=== PATIENT | male | born 1985 | race Caucasian/White ===

== ENCOUNTER 2020-07-09 01:02 | Outpatient (CLI) | payer OTHER, SELFPAY ==
[2020-07-09 16:32] LABS: SARS-CoV-2 RNA PCR Negative
== END 2020-07-09 01:03 | disposition home or self-care (01) ==
LOC: ANHCOVIDDT 01:02
PROVIDERS: PCP Family Medicine; Visit Provider Internal Medicine Gastroenterology
DX: Z01.812 Encounter for preprocedural laboratory examination (principal); Z20.828 Contact with and (suspected) exposure to other viral communicable diseases
CPT/HCPCS: 87635; C9803; U0003

== ENCOUNTER 2020-07-11 00:27 | Day surgery (SDC) | payer OTHER, MEDICAID, SELFPAY ==
[2020-06-27 13:41] VITALS: BMI 40.8
[2020-07-11 10:46] VITALS: BP 124/83; PULSE 105; RESP 16; TEMP 36.5; O2SAT 96; BMI 40.4
--- NOTE | 2020-07-11 10:56 | WPDANESEPPF ---
Anes - Initial Pre Proc Eval Procedure: Operation Date: 07/11/20 11:30 Proposed Procedures p Esophagogastroduodenoscopy & Colonoscopy - Reyes Stearns MD Date/Time: 07/11/20 10:56 Surgeon: Reyes Stearns MD Pre Op Diagnosis: Abdominal Pain/ Diarrhea Patient Data Age: 35 Gender: M Height: 5 ft 8 in Weight: 120.8 kg Last Vital Signs Temp 36.5 C 07/11/20 10:46 Pulse 105 H 07/11/20 10:46 Resp 16 07/11/20 10:46 BP 124/83 07/11/20 10:46 Pulse Ox 96 07/11/20 10:46 Allergies Allergy/AdvReac Type Severity Reaction Status Date / Time No Known Allergies Allergy Verified 07/11/20 10:43 Home Medications Medication Instructions Recorded Confirmed Type famotidine 40 mg tablet 40 mg PO DAILY #90 tablet 05/25/20 07/06/20 Rx eluxadoline 75 mg tablet 75 mg PO BID #60 tablet 06/11/20 07/06/20 Rx sertraline 25 mg tablet 12.5 mg PO DAILY #30 tablet 07/06/20 07/11/20 Rx Patient hx anesthesia problems: none Family hx anesthesia problems: none PMFSH Past Medical History Medical History Alternating constipation and diarrhea Anxiety Depression Dyspepsia Headache, migraine Sludge in gallbladder Surgical History Surgical History Biceps tendonitis on left 1991 Family History Family History Grandparent Family history of malignant neoplasm Mother Heart disease Anxiety Father Anxiety Sibling Anxiety Grandparent Cancer Social History Social History Years smoked: 2 Smoking status: Former smoker Tobacco type: e-cigarettes/vaping Second hand tobacco smoke exposure: No Alcohol intake: current Drinks per week: 7 Substance use: never Additional occupation/education comments: [employer] Gender identity (if verbalized by the patient): Male Spiritual care concerns: No Agree to blood products: Yes Anes - Eval Final PreProcedure Day of Procedure 07/11/20 10:56 Patient weight: morbidly obese Heart: regular rate and rhythm Lungs: clear to auscultation Airway: Mallampati scale class II Neurological: alert and oriented Last oral intake: >/= 8 hours ASA classification: III Emergent: no Anesthetic plan: proceed Anesthesia type and monitoring: general GIVS and standard monitoring Informed Consent: The patient's anesthetic plan and its attendant risks and benefits were discussed with the patient/family/POA. Questions were solicited and answers provided to the satisfaction of the patient/family/POA.
[2020-07-11] MEDS: LACTATED RINGERS 1,000 ML 150 ML IV CONT (11:00)
--- NOTE | 2020-07-11 12:13 | PM.HPGS ---
History of Present Illness History of Present Illness Consent: Risks, benefits, and alternatives have been discussed and questions answered. Patient agrees to proceed with procedure. Chief complaint: Abdominal Pain/ Diarrhea Narrative: Brady Guillermo is a 35 year old male with epigastric pain and diarrhea, better after started on viberzi. Review of Systems Constitutional: Constitutional: Denies headache(s) and Denies weakness Eyes: Eyes: Denies blurry vision ENT: Reports Normal hearing present, Denies headache(s) and Denies neck pain Cardiovascular: Cardiovascular: Denies chest pain and Denies dyspnea Respiratory: Respiratory: Denies dyspnea Gastrointestinal: Gastrointestinal: Reports no additional gastrointestinal complaints Genitourinary: Genitourinary: Denies dysuria Musculoskeletal: Musculoskeletal: Denies neck pain Integumentary/Breasts: Skin/Breast: Denies dry skin Neurologic: Reports Normal hearing present, Denies headache(s) and Denies weakness Psychiatric: Psychiatric: Denies anxiety Endocrine: Endocrine: Denies change in body appearance Hematologic/Lymphatic: Hematologic/Lymphatic: Denies easy bleeding Allergic/Immunologic: Allergic/Immunologic: Denies urticaria PMFSH Past Medical History Medical History Alternating constipation and diarrhea Anxiety Depression Dyspepsia Headache, migraine Sludge in gallbladder Surgical History Surgical History Biceps tendonitis on left 1991 Family History Family History Grandparent Family history of malignant neoplasm Mother Heart disease Anxiety Father Anxiety Sibling Anxiety Grandparent Cancer Social History Social History Years smoked: 2 Smoking status: Former smoker Tobacco type: e-cigarettes/vaping Second hand tobacco smoke exposure: No Alcohol intake: current Drinks per week: 7 Substance use: never Additional occupation/education comments: [employer] Gender identity (if verbalized by the patient): Male Spiritual care concerns: No Agree to blood products: Yes Meds Home Medications and Allergies Home Medications Medication Instructions Recorded Confirmed Type famotidine 40 mg tablet 40 mg PO DAILY #90 tablet 05/25/20 07/06/20 Rx eluxadoline 75 mg tablet 75 mg PO BID #60 tablet 06/11/20 07/06/20 Rx sertraline 25 mg tablet 12.5 mg PO DAILY #30 tablet 07/06/20 07/11/20 Rx Allergies Allergy/AdvReac Type Severity Reaction Status Date / Time No Known Allergies Allergy Verified 07/11/20 10:43 Vital Signs Vital Signs - 24 hr 07/11/20 10:46 Temperature 97.7 F Pulse Rate 105 H Respiratory Rate 16 Blood Pressure 124/83 Pulse Oximetry 96 Exam Const: General: comfortable and no acute distress HENMT: General nose exam: Normal nares present Eyes: General: appearance normal, both eyes and all related structures Neck: Neck: no JVD Resp: Auscultation: clear to auscultation bilaterally Cardio: Rate: regular rate Rhythm: regular rhythm GI: Inspection: non-distended GI Palp: Yes Soft to palpation Skin: General skin exam: normal color Neuro: General: gait normal Speech: normal speech Extrem: General: normal to inspection Psych: Mental Status: mental status grossly normal Assessment and Plan Assessment and plan (1) Dyspepsia: Code(s): R10.13 - Epigastric pain Status: Acute Assessment and Plan: will proceed with egd and biopsies (2) GERD (gastroesophageal reflux disease): Code(s): K21.9 - Gastro-esophageal reflux disease without esophagitis Status: Acute (3) Alternating constipation and diarrhea: Code(s): R19.8 - Other specified symptoms and signs involving the digestive system and abdomen Status:
[2020-07-11 12:15] VITALS: BP 110/67; PULSE 76; RESP 30; O2SAT 94
[2020-07-11 12:25] VITALS: BP 107/66; PULSE 78; RESP 19; O2SAT 94
[2020-07-11 12:35] VITALS: BP 110/69; PULSE 65; RESP 2; O2SAT 93
== END 2020-07-11 12:54 | disposition home or self-care (01) ==
PROVIDERS: PCP Family Medicine; Visit Provider Internal Medicine Gastroenterology
PROC: 0DJ08ZZ Inspection of Upper Intestinal Tract, Via Natural or Artificial Opening Endoscopic (ICD-10-PCS; CPT 43235; principal; 2020-07-11 11:30)
DX: R19.7 Diarrhea, unspecified (principal); K64.8 Other hemorrhoids; K25.9 Gastric ulcer, unspecified as acute or chronic, without hemorrhage or perforation; K29.50 Unspecified chronic gastritis without bleeding; F41.8 Other specified anxiety disorders; Z87.891 Personal history of nicotine dependence; E66.01 Morbid (severe) obesity due to excess calories; Z68.41 Body mass index [BMI] 40.0-44.9, adult
CPT/HCPCS: 45380; 43239; 87081; 88305; J2704; J7120